=== PATIENT | male | born 1960 | race Caucasian/White ===

== ENCOUNTER 2020-09-16 08:34 | Outpatient (REF) | payer BC, SELFPAY ==
[2020-09-16 11:18] LABS: Alanine Aminotransferase 23 U/L (0-40); Albumin Level 4.2 g/dL (3.5-5.0); Alkaline Phosphatase 54 U/L (39-117); Anion Gap 12 (12-20); Aspartate Amino Transferase 20 U/L (5-37); Bilirubin Total 0.6 mg/dL (0.0-1.0); Blood Urea Nitrogen 22 mg/dL (9-16); Calcium 8.7 mg/dL (8.4-10.2); Carbon Dioxide 26 mmol/L (22-29); Chloride 104 mmol/L (96-108); Cholesterol 184 mg/dL; Estimated Glomerular Filt Rate > 60; Glucose Fasting 90 mg/dL (60-99); HDL Cholesterol 49 mg/dL; LDL Cholesterol Calculated 117 mg/dl; Potassium 4.3 mmol/l (3.3-5.1); Sodium 138 mmol/L (135-145); Total Protein 6.7 g/dL (6.5-8.0); Triglycerides 91 mg/dL
[2020-09-16 11:19] LABS: Creatinine Urine 203.66 mg/dL; Microalbum/Creatinine Ratio Ur 6.3 ug/mg cr
[2020-09-16 13:27] LABS: TSH reflex Free T4 2.47 mIU/mL (0.32-4.0)
== END 2020-09-16 08:35 | disposition home or self-care (01) ==
LOC: HO.WFDLDS 08:34
PROVIDERS: Visit Provider Family Medicine
DX: Z00.00 Encounter for general adult medical examination without abnormal findings (principal); R03.0 Elevated blood-pressure reading, without diagnosis of hypertension
CPT/HCPCS: 80053; 80061; 82043; 84443

== ENCOUNTER 2020-11-03 | Outpatient (REF) | payer BC, SELFPAY | END 2020-11-03 00:01 | disposition home or self-care (01) | LOC: HO.WFDLNP | PROVIDERS: Visit Provider Family Medicine | DX: Z20.828 Contact with and (suspected) exposure to other viral communicable diseases (principal) | CPT/HCPCS: U0003 ==

== ENCOUNTER 2020-11-04 12:36 | Outpatient (REF) | payer BC, SELFPAY ==
[2020-11-04 13:39] LABS: Basophils Percent Auto 0.3 % (0-2); Eosinophils Absolute Auto 0.1 X10*3/uL (0.0-0.4); Eosinophils Percent Auto 0.9 % (0-4); Hematocrit 43.4 % (42-52); Hemoglobin 14.4 g/dl (14.0-18.0); Imm Gran Abs Auto 0.02 X10*3/uL (0.00-0.03); Imm Gran Pct Auto 0.2 % (0.0-0.4); Lymphocytes Absolute Auto 1.7 X10*3/uL (1.2-4.9); Lymphocytes Percent Auto 18.5 % (20-40); MANUAL DIFF FLAG NO; Mean Corpuscular HGB Conc 33.2 g/dl (31.0-36.0); Mean Corpuscular Hemoglobin 31.2 pg (27.0-33.0); Mean Corpuscular Volume 93.9 fL (80-98); Mean Platelet Volume 10.4 fL (9.4-12.4); Monocytes Absolute Auto 0.7 X10*3/uL (0.1-1.2); Monocytes Percent Auto 7.3 % (2-11); Neutrophils Absolute Auto 6.5 X10*3/uL (2.0-8.3); Neutrophils Percent Auto 72.8 % (45-73); Platelet Count 269 X10*3/uL (160-400); Red Blood Count 4.62 X10*6/uL (4.60-5.80); Red Cell Distribution Width 12.7 % (11.0-16.0)
[2020-11-04 14:28] LABS: Erythrocyte Sedimentation Rate 2 MM/HR (0-15)
[2020-11-04 14:40] LABS: Alanine Aminotransferase 52 U/L (0-40); Albumin Level 4.2 g/dL (3.5-5.0); Alkaline Phosphatase 54 U/L (39-117); Anion Gap 10 (12-20); Aspartate Amino Transferase 38 U/L (5-37); Bilirubin Total 0.4 mg/dL (0.0-1.0); Blood Urea Nitrogen 20 mg/dL (9-16); Calcium 8.7 mg/dL (8.4-10.2); Carbon Dioxide 29 mmol/L (22-29); Chloride 104 mmol/L (96-108); Estimated Glomerular Filt Rate > 60; Glucose Random 95 mg/dL (60-115); Potassium 4.4 mmol/l (3.3-5.1); Sodium 139 mmol/L (135-145); Total Protein 6.8 g/dL (6.5-8.0)
== END 2020-11-04 12:37 | disposition home or self-care (01) ==
LOC: HO.WFDLDS 12:36
PROVIDERS: Visit Provider Family Medicine
DX: R51.9 Headache, unspecified (principal)
CPT/HCPCS: 36415; 80053; 85025; 85652

== ENCOUNTER 2020-12-24 16:50 | Outpatient (REF) | payer BC, SELFPAY ==
[2020-12-24 18:19] LABS: Alanine Aminotransferase 20 U/L (0-40); Albumin Level 4.4 g/dL (3.5-5.0); Alkaline Phosphatase 62 U/L (39-117); Aspartate Amino Transferase 20 U/L (5-37); Bilirubin Direct 0.2 mg/dL (0.0-0.5); Bilirubin Total 0.6 mg/dL (0.0-1.0); Total Protein 7.2 g/dL (6.5-8.0)
== END 2020-12-24 16:51 | disposition home or self-care (01) ==
LOC: HO.LAB 16:50
PROVIDERS: PCP Family Medicine; Visit Provider Family Medicine
DX: R74.01 Elevation of levels of liver transaminase levels (principal)
CPT/HCPCS: 36415; 80076

== ENCOUNTER 2021-01-07 17:10 | Outpatient (REF) | payer BC, SELFPAY ==
--- NOTE | ~2021-01-07 | US_ITS ---
EXAMINATION: US ABDOMEN, LIMITED CLINICAL INFORMATION: Internal hernia status post repair. Worsening pain. Evaluate for incarcerated bowel. COMPARISON: None TECHNIQUE: Dynamic, real-time grayscale and color Doppler sonographic evaluation of the right groin/suprapubic region was performed. FINDINGS: There is a defect in the ventral abdominal wall fascia measuring 2.4 x 1.3 cm. Through this defect is a shadowing structure of unclear etiology. No change with Valsalva. US/US pelvic limited IMPRESSION: There is a hernia in the right inguinal/superior region which does not change with Valsalva. There is shadowing present which could indicate hollow viscus, or represent surgical material. Recommend CT with contrast for further evaluation.
== END 2021-01-07 17:11 | disposition home or self-care (01) ==
LOC: HO.US 17:10
PROVIDERS: PCP Family Medicine; Visit Provider Family Medicine
DX: K40.90 Unilateral inguinal hernia, without obstruction or gangrene, not specified as recurrent (principal)
CPT/HCPCS: 76857

== ENCOUNTER 2021-01-23 08:03 | Outpatient (REF) | payer BC, SELFPAY ==
[2021-01-23 09:49] LABS: Hematocrit 45.2 % (42-52); Mean Corpuscular HGB Conc 33.2 g/dl (31.0-36.0); Mean Corpuscular Hemoglobin 30.9 pg (27.0-33.0); Mean Platelet Volume 10.5 fL (9.4-12.4); Platelet Count 251 X10*3/uL (160-400); Red Blood Count 4.86 X10*6/uL (4.60-5.80); Red Cell Distribution Width 12.7 % (11.0-16.0); White Blood Count 7.2 X10*3/uL (4.8-10.8)
[2021-01-23 10:22] LABS: Alanine Aminotransferase 14 U/L (0-40); Albumin Level 4.2 g/dL (3.5-5.0); Alkaline Phosphatase 59 U/L (39-117); Anion Gap 11 (12-20); Aspartate Amino Transferase 18 U/L (5-37); Bilirubin Direct 0.3 mg/dL (0.0-0.5); Bilirubin Total 0.7 mg/dL (0.0-1.0); Blood Urea Nitrogen 10 mg/dL (9-16); Calcium 8.9 mg/dL (8.4-10.2); Carbon Dioxide 29 mmol/L (22-29); Chloride 102 mmol/L (96-108); Estimated Glomerular Filt Rate > 60; Glucose Random 96 mg/dL (60-115); Potassium 4.6 mmol/L (3.3-5.1); Sodium 137 mmol/L (135-145); Total Protein 6.8 g/dL (6.5-8.0)
== END 2021-01-23 08:04 | disposition home or self-care (01) ==
LOC: HO.LAB 08:03
PROVIDERS: PCP Family Medicine; Visit Provider Internal Medicine
DX: R11.0 Nausea (principal); Z20.822 Contact with and (suspected) exposure to COVID-19
CPT/HCPCS: 36415; 80048; 80076; 85027; U0003; U0005

== ENCOUNTER 2021-01-25 13:10 | Outpatient (REF) | payer BC, SELFPAY ==
--- NOTE | ~2021-01-25 | CT_ITS ---
EXAMINATION: CT ABDOMEN AND PELVIS WITH CONTRAST CLINICAL INFORMATION: Unilateral inguinal hernia, without obstruction. COMPARISON: None TECHNIQUE: Multidetector volumetric images were obtained from the superior aspect of the liver through the pubic symphysis following administration 85 mL of Omnipaque 350 intravenous contrast. Sagittal and coronal reformatted images were obtained on the technologist's workstation. Oral contrast: No. This CT examination was performed using dose optimization techniques as appropriate, variously including the following: *Automated exposure control *Adjustment of mA and/or kV according to patient size (this includes techniques or standardized protocols for targeted exams where dose is matched to indication/reason for exam; i.e. extremities or head) *Use of iterative reconstruction technique DLP: 331 mGy-cm FINDINGS: LUNG BASES: The heart size is normal. There is minimal atelectatic change right lung base. There is punctate calcification along the right and coarse calcification along the left hemidiaphragm. LIVER, GALLBLADDER, AND BILIARY TREE: The liver is normal in size, shape, and attenuation. No focal hepatic lesion or biliary ductal dilatation is present. The gallbladder is unremarkable with no evidence of radiopaque gallstones, gallbladder wall thickening, or obvious pericholecystic inflammatory changes. PANCREAS: Unremarkable. SPLEEN: Unremarkable. ADRENAL GLANDS: Unremarkable. KIDNEYS AND URETERS: The kidneys are normal in size, shape, and attenuation. No hydronephrosis, hydroureter, or calculi seen. No perinephric stranding. There is a 5.2 cm cyst midpole right kidney. There is an exophytic solid 1.9 x 1.9 cm lesion midpole lateral cortex left kidney, axial image 30/3. There are two small 1.6 cm cysts in lower pole left kidney. BLADDER: Unremarkable. GASTROINTESTINAL TRACT: There is scattered stool and diverticula seen throughout the colon without any significant distention. The small bowel loops are opacified with oral contrast and appear unremarkable. The IC junction is normal. Appendix is not visualized with certainty. The stomach is distended with recently ingested oral food and oral contrast. ABDOMINAL WALL: No significant hernia is appreciated. LYMPH NODES: Normal. VASCULAR: Unremarkable. PELVIC VISCERA: The prostate gland is normal size. There is a prominent right inguinal canal containing fat and fat stranding likely from focal inflammatory process. There is a bilobed soft tissue density in the right inguinal canal measuring 2.8 cm wide, 1.8 cm in AP and 4.83 cm in length. The left inguinal canal is unremarkable. OSSEOUS STRUCTURES: No lytic or sclerotic process seen. There are degenerative disc changes T9 through L1-L2 disc levels. Minimal loss of T12 vertebral height is noted likely chronic. There is bilateral L3-L4, L4-L5 and L5-S1 facet joint arthropathy. CT/CT abdomen pelvis w con IMPRESSION: Bilateral renal cysts. There is an exophytic solid mass midpole left kidney. Soft tissue density in the right inguinal region measuring 4.3 cm in length likely fat stranding.
== END 2021-01-25 13:11 | disposition home or self-care (01) ==
LOC: HO.CT 13:10
PROVIDERS: PCP Family Medicine; Visit Provider Family Medicine
DX: K40.90 Unilateral inguinal hernia, without obstruction or gangrene, not specified as recurrent (principal)
CPT/HCPCS: 74177

== ENCOUNTER 2022-08-30 16:49 | Outpatient (REF) | payer BC, SELFPAY ==
[2022-08-30 17:05] LABS: MANUAL DIFF FLAG NO
[2022-08-30 17:28] LABS: Basophils Percent Auto 0.4 % (0-2); Eosinophils Absolute Auto 0.1 X10*3/uL (0.0-0.4); Eosinophils Percent Auto 1.2 % (0-4); Hematocrit 43.5 % (42.0-52.0); Hemoglobin 14.6 g/dl (14.0-18.0); Imm Gran Abs Auto 0.02 X10*3/uL (0.00-0.03); Imm Gran Pct Auto 0.3 % (0.0-0.4); Lymphocytes Percent Auto 26.1 % (20-40); Mean Corpuscular HGB Conc 33.6 g/dl (31.0-36.0); Mean Corpuscular Hemoglobin 30.5 pg (27.0-33.0); Mean Corpuscular Volume 90.8 fL (80.0-98.0); Mean Platelet Volume 10.5 fL (9.4-12.4); Monocytes Absolute Auto 0.8 X10*3/uL (0.1-1.2); Monocytes Percent Auto 10.1 % (2-11); Neutrophils Absolute Auto 4.7 x10*3/uL (2.0-8.3); Neutrophils Percent Auto 61.9 % (45-73); Platelet Count 251 X10*3/uL (160-400); Red Blood Count 4.79 X10*6/uL (4.60-5.80); Red Cell Distribution Width 12.9 % (11.0-16.0); White Blood Count 7.5 X10*3/uL (4.8-10.8)
[2022-08-30 17:49] LABS: Alanine Aminotransferase 18 U/L (0-40); Albumin Level 4.3 g/dL (3.5-5.0); Alkaline Phosphatase 50 U/L (39-117); Anion Gap 13 (12-20); Aspartate Amino Transferase 21 U/L (5-37); Bilirubin Total 0.2 mg/dL (0.0-1.0); Blood Urea Nitrogen 11 mg/dL (9-16); Calcium 9.3 mg/dL (8.4-10.2); Carbon Dioxide 26 mmol/L (22-29); Chloride 106 mmol/L (96-108); Cholesterol 184 mg/dL; Estimated Glomerular Filt Rate > 60; Glucose Fasting 94 mg/dL (60-99); HDL Cholesterol 49 mg/dL; LDL Cholesterol Calculated 122 mg/dl; Potassium 4.6 mmol/L (3.3-5.1); Sodium 140 mmol/L (135-145); Triglycerides 68 mg/dL
[2022-08-30 18:02] LABS: Appearance Urine Clear; Color Urine Yellow; Glucose Urine UA Negative (Negative); Leukocyte Esterase Urine Negative (Negative); Nitrite Urine Negative (Negative); PH 6.5 (5.0-9.0); Urine Blood Negative (Negative); Urine Ketones Negative (Negative); Urine Protein Negative (Neg-Trace)
[2022-08-30 18:10] LABS: Prostate Specific Antigen Scr 1.08 ng/mL (<0.05-4.0); TSH reflex Free T4 4.42 uIU/mL (0.32-4.0)
[2022-08-30 18:15] LABS: Creatinine Urine 119.14 mg/dL; Microalbum/Creatinine Ratio Ur 4.1 ug/mg cr
[2022-08-30 18:41] LABS: Free T4 (Free Thyroxine) 0.76 ng/dL (0.71-1.85)
== END 2022-08-30 16:50 | disposition home or self-care (01) ==
LOC: HO.LAB 16:49
PROVIDERS: PCP Family Medicine; Visit Provider Family Medicine
DX: Z00.00 Encounter for general adult medical examination without abnormal findings (principal); Z12.5 Encounter for screening for malignant neoplasm of prostate; I10 Essential (primary) hypertension
CPT/HCPCS: 36415; 80053; 80061; 81003; 82043; 84153; 84439; 84443; 85025

== ENCOUNTER → 2023-01-04 15:49 | Outpatient (BNVA) | payer BC, SELFPAY | PROVIDERS: PCP Family Medicine; Visit Provider Nurse Practitioner Family | DX: Z13.89 Encounter for screening for other disorder (principal) ==

== ENCOUNTER 2023-09-05 15:56 | Outpatient (AMB) | payer BC, SELFPAY ==
--- NOTE | 2023-09-05 15:58 | A.OFFPC_ITS ---
Vital Signs 09/05/23 15:59 Height 5 ft 5 in Weight 156 lb BMI 26.0 BP 112/60 Blood Pressure Location Lt brachial Position Sitting Respiration 13 Pulse 60 Pulse Source Pulse Oximeter Temp 98.9 F Temp Source Oral Pulse Oximetry (%) 97 Oxygen Delivery Method Room Air Intake Visit Reasons: CPE Intake Note: Patient is here for his yearly physical and has a concern for his R ankle pain, no recall of injury, stepped out of truck and pain started, 2 months ago. Patient reports he has tried OTC pain relievers and they dont help, elevating the R ankle, ice and heat alternations and the pain is still there. Patient reports the pain becomes so bad at times he will start limping. Group Sales Coordinator Required: No Accompanied by: Self / Same As Patient Allergies oxycodone [OXYCODONE] Allergy (Intermediate, Verified 09/05/23 16:08) N/V, sometimes feels sick Tobacco use date assessed: 09/05/23 Fall risk assessment: No Falls in past year Last assessed Fall Risk: 09/05/23 Dental Screening Dental Screen Date: 09/05/23 Did you have a dental visit in the last 12 months?: Yes Did you have a dental problem in the last 6 months where you did not have access to dental care?: No Was dental information given to patient?: Patient has dentist HPI CPE HPI Details 63 y/o male presents for a CPE with f/u labs and health maintenance. No recent labs to review. Had elevated TSH from last year. Pt has complaints of R ankle pain. He does not recall any specific moments of injury. Pt reports ongoing tingling of his hands at night. [facility] Medical History Right inguinal pain Arthritis Hypertension Hyperlipidemia LDL goal <130 Hyperlipidemia Surgical History History of colonoscopy History of inguinal hernia repair Family History Father Unknown family medical history Mother No problems noted. Social History (Updated 09/05/23 @ 16:12 by Carri Rogers CMA) Household Members: None Housing: House Alcohol intake: never Patient Tobacco Use Status: Former Tobacco user Tobacco use type: Cigarette Cigarette Packs Per Day: 0.5 Cigarettes Per Day: 10 Years Smoked: 28 e-Cigarette/Vaping Use: Never Used Second Hand Smoke Exposure: No service: No Current occupational status: employed Current occupation: [employer] Current occupational exposures/hazards: No Sexual orientation: Unable to collect Gender identity: Unable to collect Cognitive needs: No Hearing needs: Yes (patient reports hes always had problems with hearing and hearing aids.) Vision needs: No Questionnaire PHQ-9 Over the last 2 weeks, how often have you been bothered by any of the following problems? 1. Little interest or pleasure in doing things: not at all 2. Feeling down, depressed, or hopeless: not at all 3. Trouble falling or staying asleep, or sleeping too much: not at all 4. Feeling tired or having little energy: not at all 5. Poor appetite or overeating: not at all 6. Feeling bad about yourself - or that you are a failure or have let yourself or your family down: not at all 7. Trouble concentrating on things, such as reading the newspaper or watching television: not at all 8. Moving or speaking so slowly that other people could have noticed. Or the opposite - being so fidgety or restless that you have been moving around a lot more than usual: not at all 9. Thoughts that you would be better off or of hurting yourself in some way: not at all Total score: 0 Depression Screening Interpretation: Negative Depression Screening Done: Yes 23842 - PHQ-9 Billing: Yes Source: Developed by Drs. Higinio Morales, Maxine Suazo, Amado Steel and colleagues, with an educational kellie from [employer]. Thrive Questionnaire Date Thrive assessed: 09/05/23 I am a: Patient What is your living situation today?: I have a steady place to live Within the past 12 months, did the food you bought not last and you didn't have the money to get more?: Never true Within the past 12 months, did you worry whether your food would run out before you got money to buy more?: Never true Do you have trouble paying for medicines?: No Do you have trouble getting transportation to medical appointments?: No Do you have trouble paying your heating and electricity bill?: No Do you have trouble taking care of your child, family member or friend?: No Do you have trouble with day-to-day activities such as bathing, preparing meals, shopping, managing finances, etc.?: No Are you currently unemployed and looking for a job?: No Are you interested in more education?: No Please select the resources that you would like help with: None Currently or been in a relationship where the following occur: no concerns reported AUDIT C Alcohol Use Questionnaire (AUDIT-C) 1. How often do you have a drink containing alcohol?: Never 3. How often do you have six or more drinks on one occasion?: Never Total Score: 0 ALCIRA-7 AMB Questionnaire ALCIRA-7 Date ALCIRA - 7 assessed: 09/05/23 Feeling nervous, anxious, or on edge: 0 = Not at all Not being able to stop or control worryin = Not at all Worrying too much about different things: 0 = Not at all Trouble relaxin = Not at all Being so restless that it is hard to sit still: 0 = Not at all Becoming easily annoyed or irritable: 0 = Not at all Feeling afraid as if something awful might happen: 0 = Not at all Total ALCIRA-7 score (0-4 normal; 5-9 mild; 10-14 moderate; 15-21 severe): 0 Source: Developed by Drs. Higinio Morales, Maxine Suazo, Amado Steel and colleagues, with an educational kellie from [employer]. ALCIRA-7 Assessment Billing ALCIRA-7 Assessment Tool: ALCIRA-7 Assessment 96049 Review of Systems Const Denies chills, Denies fatigue, Denies fever(s), Denies headache(s) and Denies weakness Eyes Denies change in vision ENT Denies dizziness, Denies headache(s), Denies hearing loss, Denies nasal congestion, Denies sinus pain, Denies sinus pressure and Denies sore throat Card Denies chest pain, Denies lightheadedness, Denies dyspnea and Denies other (palpitations) Resp Denies cough, Denies dyspnea and Denies wheezing GI Denies abdominal pain, Denies melena, Denies hematochezia, Denies change in bowel habits, Denies dyspepsia and Denies nausea Denies hematuria and Denies dysuria Musc Denies abnormal gait, Denies myalgias, Denies arthralgias, Denies numbness and Denies tingling Skin/Breast Denies rash, Denies unusual bruising and Denies wounds Neuro Denies abnormal gait, Denies dizziness, Denies headache(s), Denies memory loss, Denies numbness, Denies Sensory deficit (Neuro), Denies tingling and Denies weakness Psych Denies anxiety, Denies depression and Denies memory loss Endo Denies cold intolerance, Denies fatigue, Denies heat intolerance, Denies polydipsia and Denies polyuria Jason/Lymph Denies easy bleeding and Denies easy bruising Aller/Immun Denies wheezing Physical exam (Primary Care) Vital Signs: Last Vital Signs Temp 98.9 F 09/05/23 15:59 Pulse 60 09/05/23 15:59 Resp 13 09/05/23 15:59 BP 112/60 09/05/23 15:59 Pulse Ox 97 09/05/23 15:59 Oxygen Delivery Method Room Air 09/05/23 15:59 BMI result Body Mass Index 26.0 Tobacco/Smoking Status: Tobacco use Status Tobacco use date assessed 09/05/23 09/05/23 16:13 Patient Tobacco Use Status Former Tobacco user 09/05/23 16:13 Tobacco use type Cigarette 09/05/23 16:12 e-Cigarette/Vaping Use Never Used 09/05/23 16:13 PHQ-9: PHQ-9 Score PHQ-9: Total score 0 09/05/23 16:27 Depression Screening Interpretation: Negative Thrive Assessment: Date of Thrive Assessment Date Thrive assessed 09/05/23 09/05/23 16:14 Currently or been in a relationship where the following occur: no concerns reported Const General: no acute distress, well developed, alert and awake Nutritional Appearance: well nourished Orientation/consciousness: patient oriented x3 HENMT Head: Yes normocephalic and Yes atraumatic Ears: hearing grossly normal bilaterally and TM's normal bilaterally General nose exam: Normal external nose present and Normal nares present Mouth: Normal oral and palatal mucosa present and moist mucous membranes Teeth and gingiva: dentition normal Throat: Yes posterior oropharynx normal Eyes General: appearance normal, both eyes and all related structures Pupils: Equal, round and reactive pupils present and Pupil accommodation reflex normal EOM: EOMs intact bilaterally Neck Neck: Yes normal visual inspection, Yes no lymphadenopathy and Yes trachea midline Thyroid: Thyroid normal Carotids: no bruits Lymphatic: no lymphadenopathy noted Chest Chest palpation & inspection: normal inspection of the chest Resp Effort & Inspection: normal respiratory effort Auscultation: clear to auscultation bilaterally Cardio Rate: regular rate Rhythm: regular rhythm Heart sounds: S1 normal heart sound present, S2 normal heart sound present, no gallops, no murmurs and no rubs Bruits: no abdominal aortic bruits and no carotid bruits GI Palpation (GI): No Abdominal aortic bruit present, Soft to palpation, nontender, No hepatosplenomegaly present and No Rebound tenderness present Auscultation: normal bowel sounds General: Yes no CVA tenderness Back/Spine/Pelvis Back: no CVA tenderness Cervical Spine: cervical ROM normal and No Cervical spine tenderness Thoracic/Lumbar Spine: thoraco-lumbar ROM normal, No pain with thoraco-lumbar ROM, No thoracic spinal tenderness and No lumbar spinal tenderness Skin Lesions: no lesions Rashes: no rashes Trauma: no lacerations or abrasions Wounds: no wounds Nails: normal Neuro General: patient oriented x3 Cranial nerves: Yes Equal, round and reactive pupils present Cognition (Neuro): normal cognition Gait exam (Neuro): Normal gait present Motor exam (neuro): 5/5 motor strength present throughout Sensory Exam: No Sensory deficit (Neuro) Deep tendon reflexes (DTR's): Right patellar reflex intensity grade: 2+ and Left patellar reflex intensity grade: 2+ Extrem General: Yes normal to inspection and No edema Psych Appearance: grossly normal Affect: normal affect Attitude: cooperative Thought process: Normal thought process present Assessment and Plan Assessment & Plan (1) Adult general medical exam: Code(s): Z00.00 - Encounter for general adult medical examination without abnormal findings Plan: 63-year-old?male?presents?for?complete?physical?exam Encouraged?healthy?diet?with?active?lifestyle?and?plenty?of?exercise (2) Screening for prostate cancer: Code(s): Z12.5 - Encounter for screening for malignant neoplasm of prostate Plan: PSA?was?normal?at?last?check.??Rechecking?PSA (3) Screening for colon cancer: Code(s): Z12.11 - Encounter for screening for malignant neoplasm of colon Plan: Followed?by?[facility]?gastroenterology. Follow-up?with?[facility]?GI?as?recommended (4) Right ankle pain: Code(s): M25.571 - Pain in right ankle and joints of right foot Plan: Likely?right?ankle?sprain Check?x-ray Ordered?physical?therapy We?can?follow-up?on?this?at?his?next?visit (5) Numbness and tingling of right hand: Code(s): R20.0 - Anesthesia of skin; R20.2 - Paresthesia of skin Plan: Unclear?cause.??No?carpal?tunnel?according?to?Neurology Possible?cervical?radiculitis?and?advised?he?adjust?pillows. He?denies?any?symptoms?of?sleep?apnea He?can?let?me?know?if?this?worsens?or?persists (6) Hearing loss, right: Code(s): H91.91 - Unspecified hearing loss, right ear Plan: Has?hearing?aids He?will?let?me?know?if?symptoms?are?worsening (7) Elevated TSH: Code(s): R79.89 - Other specified abnormal findings of blood chemistry Plan: Elevated?TSH?at?last?check.??We?are?repeating?this Orders: Orders XR ankle RT min 3V Today M25.571 - Pain in right ankle and joints of right foot Lipid Panel Today Z00.00 - Encounter for general adult medical examination without abnormal findings Free T4 (Free Thyroxine) Today E03.9 - Hypothyroidism, unspecified Triiodothyronine T3 Total Today E03.9 - Hypothyroidism, unspecified Thyroid Stimulating Hormone Today E03.9 - Hypothyroidism, unspecified PT Evaluation and Treatment Today M25.571 - Pain in right ankle and joints of right foot Comprehensive [place]. Panel Fast Today Z00.00 - Encounter for general adult medical examination without abnormal findings Microalbumin, Random (w Creat) Today I10 - Essential (primary) hypertension Prostate Specific Antigen Scr Today Z12.5 - Encounter for screening for malignant neoplasm of prostate UA and rflx microscopic Today Z00.00 - Encounter for general adult medical examination without abnormal findings Coding Level of Care Code Est Pt Level 3 (49653) Est Pt Prev Care >65y(36503) Diagnoses Adult general medical exam Z00.00 Screening for prostate cancer Z12.5 Screening for colon cancer Z12.11 Right ankle pain M25.571 Numbness and tingling of right hand R20.0; R20.2 Hearing loss, right H91.91 Elevated TSH R79.89 Additional Codes ALCIRA-7 Assessment Billing - ALCIRA-7 Assessment Tool: ALCIRA-7 Assessment 21474 ([id number])
[2023-09-05 15:59] VITALS: BP 112/60; PULSE 60; RESP 13; TEMP 37.2; O2SAT 97; BMI 26.0
== END 2023-09-05 16:49 | disposition home or self-care (01) ==
PROVIDERS: PCP Family Medicine; Visit Provider Family Medicine
DX: Z00.00 Encounter for general adult medical examination without abnormal findings (principal); M25.571 Pain in right ankle and joints of right foot; R20.0 Anesthesia of skin; R20.2 Paresthesia of skin; H91.91 Unspecified hearing loss, right ear; R79.89 Other specified abnormal findings of blood chemistry
CPT/HCPCS: 99213; 99397

== ENCOUNTER 2023-11-01 15:20 | Outpatient (AMB) | payer BC, SELFPAY ==
--- NOTE | 2023-11-01 15:38 | A.OFFPC_ITS ---
Vital Signs 11/01/23 15:40 Height 5 ft 5 in Weight 156 lb BMI 26.0 BP 118/62 Blood Pressure Location Lt brachial Position Sitting Pulse 70 Pulse Source Pulse Oximeter Pulse Oximetry (%) 96 Oxygen Delivery Method Room Air Intake Visit Reasons: f/u elevated TSH and labs Intake Note: Patient is here with complaint of right ankle pain, has not get his labs done. Allergies oxycodone [OXYCODONE] Allergy (Intermediate, Verified 11/01/23 15:43) N/V, sometimes feels sick Tobacco use date assessed: 11/01/23 Fall risk assessment: No Falls in past year Last assessed Fall Risk: 11/01/23 HPI f/u elevated TSH and labs HPI Details 63 y/o male presents to f/u elevated TSH and labs. No recent labs to review but does have complaints of R ankle pain. X-ray negative except for mild swelling. [facility] Medical History Right inguinal pain Arthritis Hypertension Hyperlipidemia LDL goal <130 Hyperlipidemia Surgical History History of colonoscopy History of inguinal hernia repair Family History Father Unknown family medical history Mother No problems noted. Social History Household Members: None Housing: House Alcohol intake: never Patient Tobacco Use Status: Former Tobacco user Tobacco use type: Cigarette Cigarette Packs Per Day: 0.5 Cigarettes Per Day: 10 Years Smoked: 28 e-Cigarette/Vaping Use: Never Used Second Hand Smoke Exposure: No service: No Current occupational status: employed Current occupation: [employer] Current occupational exposures/hazards: No Sexual orientation: Unable to collect Gender identity: Unable to collect Cognitive needs: No Hearing needs: Yes (patient reports hes always had problems with hearing and hearing aids.) Vision needs: No Questionnaire Thrive Questionnaire Date Thrive assessed: 09/05/23 ALCIRA-7 AMB Questionnaire ALCIRA-7 Date ALCIRA - 7 assessed: 09/05/23 Source: Developed by Drs. Higinio Morales, Maxine Suazo, Amado Steel and colleagues, with an educational kellie from [employer]. Review of Systems Const Denies chills, Denies fatigue, Denies fever(s), Denies headache(s) and Denies weakness ENT Denies dizziness and Denies headache(s) Card Denies dyspnea Resp Denies cough, Denies dyspnea, Denies wheezing and Denies other (shortness of breath) Musc Details: R ankle pain Denies numbness and Denies tingling Neuro Denies dizziness, Denies headache(s), Denies numbness, Denies tingling and Denies weakness Psych Denies anxiety and Denies depression Endo Denies fatigue Aller/Immun Denies wheezing Physical exam (Primary Care) Vital Signs: Last Vital Signs Pulse 70 11/01/23 15:40 BP 118/62 11/01/23 15:40 Pulse Ox 96 11/01/23 15:40 Oxygen Delivery Method Room Air 11/01/23 15:40 BMI result Body Mass Index 26.0 Tobacco/Smoking Status: Tobacco use Status Tobacco use date assessed 11/01/23 11/01/23 15:48 Patient Tobacco Use Status Former Tobacco user 11/01/23 15:41 Tobacco use type Cigarette 11/01/23 15:41 e-Cigarette/Vaping Use Never Used 11/01/23 15:41 Thrive Assessment: Date of Thrive Assessment Date Thrive assessed 09/05/23 11/01/23 15:41 Const General: well developed; No acute distress Nutritional Appearance: well nourished Orientation/consciousness: patient oriented x3 [facility] Head: Yes normocephalic and Yes atraumatic Eyes General: appearance normal, both eyes and all related structures Pupils: Equal, round and reactive pupils present EOM: EOMs intact bilaterally Resp Effort & Inspection: normal respiratory effort Neuro General: patient oriented x3 and gait normal Cranial nerves: Yes Equal, round and reactive pupils present Psych Affect: normal affect Assessment and Plan Assessment & Plan (1) Right ankle pain: Code(s): M25.571 - Pain in right ankle and joints of right foot Plan: Right?ankle?and?foot?pain?and?swelling?after?stepping?down?[address]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 Likely?contusion?of?arch?and?mild?sprain?of?ankle Elevate?foot Ice/heat?and?he?can?continue?using?icy?hot Arch?support?in?boot?while?working Naproxen Call?or?return?to?office?if?not?improving (2) Elevated TSH: Code(s): R79.89 - Other specified abnormal findings of blood chemistry Plan: Patient?has?not?gotten?his?labs?drawn?yet?but?will?do?so?prior?to?next?visit?[facility]?we?can?review?by?telemedicine. Coding Level of Care Code Est Pt Level 3 (27782) Diagnoses Right ankle pain M25.571 Elevated TSH R79.89
[2023-11-01 15:40] VITALS: BP 118/62; PULSE 70; O2SAT 96; BMI 26.0
== END 2023-11-01 16:26 | disposition home or self-care (01) ==
PROVIDERS: PCP Family Medicine; Visit Provider Family Medicine
DX: M25.571 Pain in right ankle and joints of right foot (principal); R79.89 Other specified abnormal findings of blood chemistry
CPT/HCPCS: 99213

== ENCOUNTER 2023-12-19 14:13 | Outpatient (REF) | payer BC, SELFPAY ==
--- NOTE | ~2023-12-19 | XR_ITS ---
EXAMINATION: XR ANKLE, RIGHT CLINICAL INFORMATION: Pain in the right ankle and joints of the right foot. COMPARISON: None available. TECHNIQUE: AP, lateral, and mortise views of the right ankle. FINDINGS: Small marginal osteophytes at the right talocrural joint. Joint spaces are well-preserved. Mild soft tissue swelling. Calcific atherosclerosis is noted. No fracture or malalignment. 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 No acute osseous findings.
[2023-12-19 14:45] LABS: Appearance Urine Clear; Color Urine Yellow; Glucose Urine UA Negative (Negative); Leukocyte Esterase Urine Negative (Negative); Nitrite Urine Negative (Negative); PH 6.5 (5.0-9.0); Specific Gravity - Urine 1.015 (1.005-1.025); Urine Blood Negative (Negative); Urine Ketones Negative (Negative); Urine Protein Negative (Neg-Trace)
[2023-12-19 15:10] LABS: Creatinine Urine 48.88 mg/dL; Microalbumin Urine < 5.0 mg/L
[2023-12-19 15:18] LABS: Alanine Aminotransferase 16 U/L (0-40); Albumin Level 4.3 g/dL (3.5-5.0); Alkaline Phosphatase 49 U/L (39-117); Anion Gap 12 (12-20); Aspartate Amino Transferase 20 U/L (5-37); Bilirubin Total 0.5 mg/dL (0.0-1.0); Blood Urea Nitrogen 19 mg/dL (9-16); Calcium 9.3 mg/dL (8.4-10.2); Carbon Dioxide 29 mmol/L (22-29); Chloride 104 mmol/L (96-108); Cholesterol 190 mg/dL (<200); Estimated Glomerular Filt Rate > 60; Glucose Fasting 91 mg/dL (60-99); HDL Cholesterol 56 mg/dL (>40); LDL Cholesterol Calculated 124 mg/dL (<100); Potassium 4.7 mmol/L (3.3-5.1); Sodium 140 mmol/L (135-145); Total Protein 7.3 g/dL (6.5-8.0); Triglycerides 53 mg/dL (<150)
[2023-12-19 15:33] LABS: Free T4 (Free Thyroxine) 0.77 ng/dL (0.71-1.85); Prostate Specific Antigen Scr 1.26 ng/mL (<0.05-4.0); Thyroid Stimulating Hormone 3.29 uIU/mL (0.32-4.0)
[2023-12-20 03:48] LABS: Triiodothyronine T3 Total 126 ng/dL (76-181)
== END 2023-12-19 14:14 | disposition home or self-care (01) ==
LOC: HO.XRAY 14:13
PROVIDERS: PCP Family Medicine; Visit Provider Family Medicine
DX: Z00.00 Encounter for general adult medical examination without abnormal findings (principal); Z12.5 Encounter for screening for malignant neoplasm of prostate; M25.571 Pain in right ankle and joints of right foot; I10 Essential (primary) hypertension; E03.9 Hypothyroidism, unspecified
CPT/HCPCS: 36415; 73610; 80053; 80061; 81003; 82043; 82570; 84153; 84439; 84443; 84480

== ENCOUNTER 2024-02-26 16:59 | Outpatient (AMB) | payer BC, SELFPAY ==
--- NOTE | 2024-02-26 16:46 | A.OFFPC_ITS ---
Intake Visit Reasons: f/u r foot swelling and labs Intake Note: Patient is following up on x-ray, labs today. Allergies oxycodone [OXYCODONE] Allergy (Intermediate, Verified 02/26/24 16:48) N/V, sometimes feels sick Tobacco use date assessed: 02/26/24 Fall risk assessment: No Falls in past year Last assessed Fall Risk: 02/26/24 Dental Screening Dental Screen Date: 02/26/24 Did you have a dental visit in the last 12 months?: Yes Did you have a dental problem in the last 6 months where you did not have access to dental care?: No Was dental information given to patient?: Patient has dentist HPI f/u r foot swelling and labs HPI Details 63 y/o male presents to f/u R foot swell ing and labs via telemedicine. Labs were drawn 12/19/23. Reviewed labs with pt. Triglcyerides 53. TC 190. LDL 124. HDL 56. TSH improved from 4.42 to 3.29 uIU/mL. Ankle x-ray 12/19/23 showed minimal osteoarthritis at the R talocrural joint. No acute osseous findings. [facility] Medical History Right inguinal pain Arthritis Hypertension Hyperlipidemia LDL goal <130 Hyperlipidemia Surgical History History of colonoscopy History of inguinal hernia repair Family History Father Unknown family medical history Mother No problems noted. Social History Household Members: None Housing: House Alcohol intake: never Patient Tobacco Use Status: Former Tobacco user Tobacco use type: Cigarette Cigarette Packs Per Day: 0.5 Cigarettes Per Day: 10 Years Smoked: 28 e-Cigarette/Vaping Use: Never Used Second Hand Smoke Exposure: No service: No Current occupational status: employed Current occupation: [employer] Current occupational exposures/hazards: No Sexual orientation: Unable to collect Gender identity: Unable to collect Cognitive needs: No Hearing needs: Yes (patient reports hes always had problems with hearing and hearing aids.) Vision needs: No Questionnaire Thrive Questionnaire Date Thrive assessed: 09/05/23 ALCIRA-7 AMB Questionnaire ALCIRA-7 Date ALCIRA - 7 assessed: 09/05/23 Source: Developed by Drs. Higinio Morales, Maxine Suazo, Amado Steel and colleagues, with an educational kellie from [employer]. Review of Systems Const Denies chills, Denies fatigue, Denies fever(s), Denies headache(s) and Denies weakness ENT Denies dizziness and Denies headache(s) Card Denies dyspnea Resp Denies cough, Denies dyspnea, Denies wheezing and Denies other (shortness of breath) Musc Denies numbness and Denies tingling Neuro Denies dizziness, Denies headache(s), Denies numbness, Denies tingling and Denies weakness Psych Denies anxiety and Denies depression Endo Denies fatigue Aller/Immun Denies wheezing Physical exam (Primary Care) Tobacco/Smoking Status: Tobacco use Status Tobacco use date assessed 02/26/24 02/26/24 16:49 Patient Tobacco Use Status Former Tobacco user 02/26/24 16:49 Tobacco use type Cigarette 02/26/24 16:49 e-Cigarette/Vaping Use Never Used 02/26/24 16:49 Thrive Assessment: Date of Thrive Assessment Date Thrive assessed 09/05/23 02/26/24 16:49 Telehealth Telehealth Telehealth Platform: Telephone Location of provider rendering services: practice address Location of patient: address on file Patient Identification confirmed using: Name, : Yes Telehealth method: voice only Patient verbally consented to treatment: Yes Patient verbally consented to billing insurance company: Yes Patient informed of any privacy concerns related to visit: Yes Minutes spent on Phone/Video with Pt.: 8 Assessment and Plan Assessment & Plan (1) Swelling of right foot: Code(s): M79.89 - Other specified soft tissue disorders Plan: Osteoarthritis?of?the?right?foot He?gets?some?improvement?when?he?takes?naproxen. Offered?to?refer?him?to?Ortho?to?consider?steroid?injections?but?he?wants?to?con tinue?using?naproxen?and?I?advised?he?elevate?his?foot?and? use?cold?packs?when?he?gets?home?from?work. He?will?let?me?know?if?this?worsens?and?at?that?point?we?would?make?a?referral. (2) Elevated TSH: Code(s): R79.89 - Other specified abnormal findings of blood chemistry Plan: This?has?resolved Plan Reviewed?patient's?labs?with?him?and?everything?looks?okay Coding Level of Care Code Tele Est Pt Level 2 (25272) Diagnoses Swelling of right foot M79.89 Elevated TSH R79.89
== END 2024-02-26 17:35 | disposition home or self-care (01) ==
LOC: HO.HMGFM 16:59
PROVIDERS: PCP Family Medicine; Visit Provider Family Medicine
DX: M79.89 Other specified soft tissue disorders (principal); R79.89 Other specified abnormal findings of blood chemistry
CPT/HCPCS: 99441

== ENCOUNTER 2025-07-09 15:24 | Outpatient (AMB) | payer BC, SELFPAY ==
--- NOTE | 2025-07-09 15:27 | MHC.PC.OV ---
Vital Signs 07/09/25 15:31 Height 5 ft 3 in Weight 156 lb 2 oz BMI 27.7 BP 110/64 Blood Pressure Location Rt brachial Position Sitting Respiration 14 Pulse 71 Pulse Source Pulse Oximeter Temp 98.2 F Temp Source Temporal Artery Scan Pulse Oximetry (%) 97 Oxygen Delivery Method Room Air Intake Visit Reasons: ankle issues on right foot Intake Note: Bharathi presents in the office today for issues with his right ankle. Allergies oxycodone (OXYCODONE) Allergy (Intermediate, Verified 07/09/25 15:29) N/V, sometimes feels sick Medication List - Last Reconciled 07/09/25 by Christian Lock MD enalapril maleate 10 mg PO DAILY 90 days Tobacco use date assessed: 07/09/25 Fall risk assessment: No Falls in past year Last assessed Fall Risk: 07/09/25 Dental Screening Dental Screen Date: 07/09/25 Did you have a dental visit in the last 12 months?: Yes Did you have a dental problem in the last 6 months where you did not have access to dental care?: No Was dental information given to patient?: Patient has dentist HPI ankle issues on right foot HPI Details 65 y/o male presents today with complaints of R ankle/foot pain. [facility] Medical History Right inguinal pain Arthritis Hypertension Hyperlipidemia LDL goal <130 Hyperlipidemia Surgical History History of colonoscopy History of inguinal hernia repair Family History Father Unknown family medical history Mother No problems noted. Social History (Updated 07/09/25 @ 15:31 by Sheron Ayoub MA) Household Members: None Housing: House Alcohol intake: never Patient Tobacco Use Status: Former Tobacco user Tobacco use type: Cigarette Cigarette Packs Per Day: 0.5 Cigarettes Per Day: 10 Years Smoked: 28 e-Cigarette/Vaping Use: Never Used Second Hand Smoke Exposure: No service: No Current occupational status: employed Current occupation: [employer] Current occupational exposures/hazards: No Sexual orientation: Unable to collect Gender identity: Unable to collect Cognitive needs: No Hearing needs: Yes (patient reports hes always had problems with hearing and hearing aids.) Vision needs: No Questionnaire Thrive Questionnaire Date Thrive assessed: 09/05/23 ALCIRA-7 AMB Questionnaire ALCIRA-7 Date ALCIRA - 7 assessed: 09/05/23 Source: Developed by Drs. Higinio Morales, Maxine Suazo, Amado tSeel and colleagues, with an educational kellie from [employer]. Review of Systems Const Denies chills, Denies fatigue, Denies fever(s), Denies headache(s) and Denies weakness ENT Denies dizziness and Denies headache(s) Card Denies dyspnea Resp Denies cough, Denies dyspnea, Denies wheezing and Denies other (shortness of breath) Musc Denies numbness and Denies tingling Neuro Denies dizziness, Denies headache(s), Denies numbness, Denies tingling and Denies weakness Psych Denies anxiety and Denies depression Endo Denies fatigue Aller/Immun Denies wheezing Physical exam (Primary Care) Vital Signs: Last Vital Signs Temp 98.2 F 07/09/25 15:31 Pulse 71 07/09/25 15:31 Resp 14 07/09/25 15:31 BP 110/64 07/09/25 15:31 Pulse Ox 97 07/09/25 15:31 Oxygen Delivery Method Room Air 07/09/25 15:31 BMI result Body Mass Index 27.7 Tobacco/Smoking Status: Tobacco use Status Tobacco use date assessed 07/09/25 07/09/25 15:34 Patient Tobacco Use Status Former Tobacco user 07/09/25 15:31 Tobacco use type Cigarette 07/09/25 15:31 e-Cigarette/Vaping Use Never Used 07/09/25 15:31 Thrive Assessment: Date of Thrive Assessment Date Thrive assessed 09/05/23 07/09/25 15:29 Const General: well developed; No acute distress Nutritional Appearance: well nourished Orientation/consciousness: patient oriented x3 HENMT Head: Yes normocephalic and Yes atraumatic Eyes General: appearance normal, both eyes and all related structures Pupils: Equal, round and reactive pupils present EOM: EOMs intact bilaterally Resp Effort & Inspection: normal respiratory effort Neuro General: patient oriented x3 and gait normal Cranial nerves: Yes Equal, round and reactive pupils present Psych Affect: normal affect Coding Level of Care Code Est Pt Level 4 (20022) Diagnoses Right foot pain M79.671 Essential hypertension I10 Assessment & Plan Assessment & Plan (1) Right foot pain: Code(s): M79.671 - Pain in right foot Category: Medical Plan: Longstanding and worsening right foot pain. X-ray had shown osteoarthritis. No recent x-ray - will order new x-ray and follow-up with patient Referred to Podiatry. Instep and arch appear mildly collapsed and he may benefit from supportive arch. (2) Essential hypertension: Code(s): I10 - Essential (primary) hypertension Category: Medical Plan: Blood pressure remains well controlled on enalapril. Goal is less than 140/90 Continue medication Orders: Orders Complete Blood Count Auto Diff Today Z00.00 - Encounter for general adult medical examination without abnormal findings Lipid Panel Today Z00.00 - Encounter for general adult medical examination without abnormal findings Microalbumin, Random (w Creat) Today I10 - Essential (primary) hypertension Prostate Specific Antigen Scr Today Z12.5 - Encounter for screening for malignant neoplasm of prostate TSH reflex Free T4 Today Z00.00 - Encounter for general adult medical examination without abnormal findings XR foot RT min 3V Today M79.671 - Pain in right foot Comprehensive [place]. Panel Fast Today Z00.00 - Encounter for general adult medical examination without abnormal findings UA CC w/rflx Micro + Cult Today Z00.00 - Encounter for general adult medical examination without abnormal findings Referrals Podiatry Referral M79.671 - Pain in right foot Medications: Refilled enalapril maleate 10 mg PO DAILY 90 tabs 2RF 90 days
[2025-07-09 15:31] VITALS: BP 110/64; PULSE 71; RESP 14; TEMP 36.8; O2SAT 97; BMI 27.7
== END 2025-07-09 15:48 | disposition home or self-care (01) ==
LOC: HO.HMCFM 15:24
PROVIDERS: PCP Family Medicine; Visit Provider Family Medicine
DX: M79.671 Pain in right foot (principal); I10 Essential (primary) hypertension

== ENCOUNTER 2025-07-15 10:53 | Outpatient (REF) | payer BC, SELFPAY ==
--- NOTE | ~2025-07-15 | XR_ITS ---
EXAMINATION: XR FOOT 3 OR MORE VIEWS RIGHT HISTORY: M79.671 - Pain in right foot COMPARISON: There are no prior studies available for comparison. FINDINGS: Three views of the right foot are submitted. Osseous mineralization is normal. There is no fracture or dislocation. There is moderate osteoarthritis of the 1st MTP joint with joint space and osteophyte formation. There is mild degenerative change of the talonavicular joint. The soft tissues are unremarkable. XR/XR foot RT min 3V IMPRESSION: Degenerative changes of the right foot as described. Electronically signed by: Higinio Soto MD 07/15/2025 11:26 AM EDT
[2025-07-15 11:37] LABS: MANUAL DIFF FLAG NO
[2025-07-15 11:56] LABS: Hematocrit 42.3 % (42.0-52.0); Hemoglobin 14.2 g/dl (14.0-18.0); Imm Gran Abs Auto 0.02 X10*3/uL (0.00-0.03); Imm Gran Pct Auto 0.3 % (0.0-0.4); Lymphocytes Absolute Auto 1.4 X10*3/uL (1.2-4.9); Mean Corpuscular HGB Conc 33.6 g/dl (31.0-36.0); Mean Corpuscular Hemoglobin 31.0 pg (27.0-33.0); Mean Corpuscular Volume 92.4 fL (80.0-98.0); NRBC Abs Auto 0.000 X10*3/uL (0.0-0.012); NRBC Pct Auto 0.0 /100WBC (0.0-0.2); Platelet Count 204 X10*3/uL (160-400); Red Blood Count 4.58 X10*6/uL (4.60-5.80); White Blood Count 6.9 X10*3/uL (4.8-10.8)
[2025-07-15 12:25] LABS: Appearance Urine Clear; Glucose Urine UA Negative (Negative); PH 6.0 (5.0-9.0); Specific Gravity - Urine >= 1.030 (1.005-1.025)
[2025-07-15 12:32] LABS: Alanine Aminotransferase 19 U/L (0-40); Albumin Level 4.1 g/dL (3.5-5.0); Alkaline Phosphatase 48 U/L (39-117); Anion Gap 8 (12-20); Aspartate Amino Transferase 23 U/L (5-37); Blood Urea Nitrogen 24 mg/dL (9-16); Calcium 8.8 mg/dL (8.4-10.2); Carbon Dioxide 27 mmol/L (22-29); Chloride 111 mmol/L (96-108); Cholesterol 176 mg/dL (<200); Estimated Glomerular Filt Rate > 60; HDL Cholesterol 45 mg/dL (>40); Potassium 4.2 mmol/L (3.3-5.1); Sodium 142 mmol/L (135-145); Total Protein 6.5 g/dL (6.5-8.0); Triglycerides 106 mg/dL (<150)
[2025-07-15 13:18] LABS: Microalbum/Creatinine Ratio Ur 3.3 ug/mg cr (<30)
== END 2025-07-15 10:54 | disposition home or self-care (01) ==
LOC: HO.XRAY 10:53
PROVIDERS: PCP Family Medicine; Visit Provider Family Medicine
DX: Z00.00 Encounter for general adult medical examination without abnormal findings (principal); Z12.5 Encounter for screening for malignant neoplasm of prostate; I10 Essential (primary) hypertension; M79.671 Pain in right foot
CPT/HCPCS: 36415; 73630; 80053; 80061; 81003; 82043; 82570; 84153; 84443; 85025

== ENCOUNTER → 2025-07-15 10:59 | Outpatient (BNV) | payer BC, SELFPAY | PROVIDERS: PCP Family Medicine; Visit Provider Radiology Diagnostic Radiology | DX: M19.071 Primary osteoarthritis, right ankle and foot (principal) | CPT/HCPCS: 73630 ==

== ENCOUNTER 2025-08-19 15:11 | Outpatient (AMB) | payer BC, SELFPAY ==
--- NOTE | 2025-08-19 15:15 | A.OFFPC_ITS ---
Vital Signs 08/19/25 15:22 Height 5 ft 3 in Weight 160 lb 2 oz BMI 28.4 BP 106/66 Blood Pressure Location Rt brachial Position Sitting Respiration 14 Pulse 57 Pulse Source Pulse Oximeter Temp 97.8 F Temp Source Temporal Artery Scan Pulse Oximetry (%) 95 Oxygen Delivery Method Room Air Intake Visit Reasons: review x-ray of right foot as well as lab work. Intake Note: Bharathi presents in the office for a review of his lab work and the x-ray of his right foot. Allergies oxycodone (OXYCODONE) Allergy (Intermediate, Verified 08/19/25 15:21) N/V, sometimes feels sick Medication List - Last Reconciled 08/19/25 by Christian Lock MD enalapril maleate 10 mg PO DAILY 90 days Tobacco use date assessed: 08/19/25 Dental Screening Dental Screen Date: 08/19/25 Did you have a dental visit in the last 12 months?: Yes Did you have a dental problem in the last 6 months where you did not have access to dental care?: No Was dental information given to patient?: Patient has dentist HPI review x-ray of right foot as well as lab work. HPI Details 65 y/o male presents to f/u R foot pain, labs. Foot xray 07/15/25. Showed degenerative changes of R foot. He states he has an appt. with podiatry scheduled. Labs drawn 07/15/25. Reviewed labs with pt. Fasting glucose 102. Triglycerides 106. TC 176. LDL 110. HDL 45. PSA 1.70. TSH 1.95. BP today 106/66, 57p. HPI Comments History of Present Illness Details Documentation assistance for Christian Lock MD, was provided by Paulo Brennan,? 8Th Grade Mathematics Teacher on 08/19/2025 at 4:11 PM EST. I, Dr. Lock, have read, observed, and verified documentation. ?? PFSH Medical History Right inguinal pain Arthritis Hypertension Hyperlipidemia LDL goal <130 Hyperlipidemia Surgical History History of colonoscopy History of inguinal hernia repair Family History Father Unknown family medical history Mother No problems noted. Social History (Updated 08/19/25 @ 15:22 by Sheron Ayoub CMA) Household Members: None Housing: House Alcohol intake: never Patient Tobacco Use Status: Former Tobacco user Tobacco use type: Cigarette Cigarette Packs Per Day: 0.5 Cigarettes Per Day: 10 Years Smoked: 28 e-Cigarette/Vaping Use: Never Used Second Hand Smoke Exposure: No service: No Current occupational status: employed Current occupation: [employer] Current occupational exposures/hazards: No Sexual orientation: Unable to collect Gender identity: Unable to collect Cognitive needs: No Hearing needs: Yes (patient reports hes always had problems with hearing and hearing aids.) Vision needs: No Questionnaire Thrive Questionnaire Date Thrive assessed: 09/05/23 ALCIRA-7 AMB Questionnaire ALCIRA-7 Date ALCIRA - 7 assessed: 09/05/23 Source: Developed by Drs. Higinio Morales, Maxine Suazo, Amado Steel and colleagues, with an educational kellie from [employer] Review of Systems Const Denies chills, Denies fatigue, Denies fever(s), Denies headache(s) and Denies weakness ENT Denies dizziness and Denies headache(s) Card Denies dyspnea Resp Denies cough, Denies dyspnea, Denies wheezing and Denies other (shortness of breath) Musc Denies numbness and Denies tingling Neuro Denies dizziness, Denies headache(s), Denies numbness, Denies tingling and Denies weakness Psych Denies anxiety and Denies depression Endo Denies fatigue Aller/Immun Denies wheezing Physical exam (Primary Care) Vital Signs: Last Vital Signs Temp 97.8 F 08/19/25 15:22 Pulse 57 08/19/25 15:22 Resp 14 08/19/25 15:22 BP 106/66 08/19/25 15:22 Pulse Ox 95 08/19/25 15:22 Oxygen Delivery Method Room Air 08/19/25 15:22 BMI result Body Mass Index 28.4 Tobacco/Smoking Status: Tobacco use Status Tobacco use date assessed 08/19/25 08/19/25 15:27 Patient Tobacco Use Status Former Tobacco user 08/19/25 15:22 Tobacco use type Cigarette 08/19/25 15:22 e-Cigarette/Vaping Use Never Used 08/19/25 15:22 Thrive Assessment: Date of Thrive Assessment Date Thrive assessed 09/05/23 08/19/25 15:17 Const General: well developed; No acute distress Nutritional Appearance: well nourished Orientation/consciousness: patient oriented x3 HENMT Head: Yes normocephalic and Yes atraumatic Eyes General: appearance normal, both eyes and all related structures Pupils: Equal, round and reactive pupils present EOM: EOMs intact bilaterally Resp Effort & Inspection: normal respiratory effort Neuro General: patient oriented x3 and gait normal Cranial nerves: Yes Equal, round and reactive pupils present Psych Affect: normal affect Coding Level of Care Code Est Pt Level 4 (03617) Diagnoses Right foot pain M79.671 Elevated fasting glucose R73.01 Hyperlipidemia E78.5 Hypertension I10 Assessment & Plan Assessment & Plan (1) Right foot pain: Code(s): M79.671 - Pain in right foot Category: Medical Plan: Ongoing right foot pain X-ray shows significant degenerative changes Sent a script for naproxen He has an appointment with Podiatry (2) Elevated fasting glucose: Code(s): R73.01 - Impaired fasting glucose Category: Medical Plan: Mildly elevated fasting blood sugar Encouraged a diet lower in sugars and starches Will recheck with next blood draw (3) Hyperlipidemia: Code(s): E78.5 - Hyperlipidemia, unspecified Category: Medical Plan: LDL cholesterol has improved though still slightly above goal Encouraged lifestyle changes Will recheck with next blood draw (4) Hypertension: Code(s): I10 - Essential (primary) hypertension Category: Medical Plan: Blood pressure is well controlled. Goal is less than 140/90 Continue current medication Orders: Orders Comprehensive [place]. Panel Fast Today I10 - Essential (primary) hypertension, Z00.00 - Encounter for general adult medical examination without abnormal findings TSH reflex Free T4 Today R79.89 - Other specified abnormal findings of blood chemistry, Z00.00 - Encounter for general adult medical examination without abnormal findings Lipid Panel Today E78.5 - Hyperlipidemia, unspecified, Z00.00 - Encounter for general adult medical examination without abnormal findings Hemoglobin A1c Today R73.01 - Impaired fasting glucose Medications: Changed From naproxen 500 mg PO BID PRN 28 tabs 2RF pain 14 days To naproxen 500 mg PO BID PRN 60 tabs 2RF pain 30 days
[2025-08-19 15:22] VITALS: BP 106/66; PULSE 57; RESP 14; TEMP 36.6; O2SAT 95; BMI 28.4
== END 2025-08-19 16:19 | disposition home or self-care (01) ==
LOC: HO.HMCFM 15:12
PROVIDERS: PCP Family Medicine; Visit Provider Family Medicine
DX: M79.671 Pain in right foot (principal); R73.01 Impaired fasting glucose; E78.5 Hyperlipidemia, unspecified; I10 Essential (primary) hypertension

== ENCOUNTER 2025-08-28 15:07 | Outpatient (AMB) | payer BC, SELFPAY ==
--- NOTE | 2025-08-28 15:20 | MHC.OFFVIS ---
Vital Signs 08/28/25 15:21 Height 5 ft 3 in Weight 160 lb BMI 28.3 Intake Visit Reasons: pain in right foot Intake Note: Bharathi is a 65 yea old male who presents today as a new patient for an evaluation of his right foot pain. 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 Patient has not had any treatment however he uses a product similar to bengay that provides slight relief. Foot X ray IMPRESSION: Degenerative changes of the right foot as described. Allergies oxycodone (OXYCODONE) Allergy (Intermediate, Verified 08/28/25 15:21) N/V, sometimes feels sick Medication List - Last Reconciled 08/28/25 by Diane Mijares DPM enalapril maleate 10 mg PO DAILY 90 days lidocaine 5% 1 patch topical BID naproxen 500 mg PO BID PRN 30 days HPI Comments Details: The patient is a 65-year-old male with a PMH as seen below presenting with persistent right foot and ankle pain. The issue began approximately two years ago following an injury. The patient reports that the pain is not severe, rating it around a 5/10, and it primarily occurs when standing for extended periods. He notes that the pain does not radiate and is localized to the area of the medial aspect of the foot along the medial cuneiform. There is no associated numbness or tingling. Previous evaluations included foot x-rays, which did not reveal any fractures, but early-stage arthritis was noted. The patient has been using topical treatments similar to Bengay at night and in the morning, which provide some relief, and has also been prescribed Naproxen with provides some relief. He has tried [id number] medications like Advil, which he finds effective but prefers to use sparingly. He denies any other peda concerns. [facility] Medical History (Updated 08/30/25 @ 19:34 by Diane Mijares DPM) Posterior tibial tendinitis, right leg Arthritis of right foot Right foot sprain Right inguinal pain Arthritis Hypertension Hyperlipidemia LDL goal <130 Hyperlipidemia Surgical History History of colonoscopy History of inguinal hernia repair Family History Father Unknown family medical history Mother No problems noted. Social History (Updated 08/19/25 @ 15:22 by Sheron Ayoub CMA) Household Members: None Housing: House Alcohol intake: never Patient Tobacco Use Status: Former Tobacco user Tobacco use type: Cigarette Cigarette Packs Per Day: 0.5 Cigarettes Per Day: 10 Years Smoked: 28 e-Cigarette/Vaping Use: Never Used Second Hand Smoke Exposure: No service: No Current occupational status: employed Current occupation: [employer] Current occupational exposures/hazards: No Sexual orientation: Unable to collect Gender identity: Unable to collect Cognitive needs: No Hearing needs: Yes (patient reports hes always had problems with hearing and hearing aids.) Vision needs: No Review of Systems Const Details: - Musculoskeletal: Reports localized right foot pain. Denies radiation of pain, numbness, or tingling. All systems reviewed & are unremarkable except as noted in HPI and below Physical Exam Vital Signs: BMI result Body Mass Index 28.3 Extrem Other: RLE Focused Physical Exam: Derm: Edema noted to the medial aspect of the foot along the medial cuneiform and medial aspect of the navicular and talus. No open lesions, abrasions, or wounds noted. No ecchymosis or discoloration noted. No clinical signs of infection noted. Vasc: DP/PT pulses palpable. CFT < 3 secs. Temp gradient warm to warm. Pedal hair present. No varicosities noted. Neuro: Protective sensations grossly intact. MSK: Pain on palpation to the medial aspect of the right foot in the area of the medial cuneiform, navicular, and talus. No crepitus noted. ROM of the forefoot, hindfoot, and ankle WNL. No fluctuance noted. Antalgic gait unassisted noted. No pain on palpation along the ankle. Ankle/foot/toe images:  1. Results Reviewed Results Reviewed: Ordered right ankle MRI to be obtained prior to next visit. Podiatry Read of Right foot xray (07/15/25): Bipartite medial and lateral sesamoids. Osteophytic changes noted to the dorsal aspect of the midfoot. Joint space narrowing noted to the 1st MPJ and TNJ. Right foot xray (07/15/25): FINDINGS: Three views of the right foot are submitted. Osseous mineralization is normal. There is no fracture or dislocation. There is moderate osteoarthritis of the 1st MTP joint with joint space and osteophyte formation. There is mild degenerative change of the talonavicular joint. The soft tissues are unremarkable. IMPRESSION: Degenerative changes of the right foot as described. Assessment & Plan Assessment & Plan (1) Right ankle pain: Code(s): M25.571 - Pain in right ankle and joints of right foot Category: Medical Qualifiers: Chronicity: chronic Qualified Code(s): M25.571 - Pain in right ankle and joints of right foot; G89.29 - Other chronic pain (2) Right foot pain: Code(s): M79.671 - Pain in right foot Category: Medical (3) Right foot sprain: Code(s): S93.601A - Unspecified sprain of right foot, initial encounter Category: Medical Qualifiers: Encounter type: initial encounter Qualified Code(s): S93.601A - Unspecified sprain of right foot, initial encounter (4) Arthritis of right foot: Code(s): M19.071 - Primary osteoarthritis, right ankle and foot Category: Medical (5) Posterior tibial tendinitis, right leg: Code(s): M76.821 - Posterior tibial tendinitis, right leg Category: Medical Plan Patient was informed and verbally consented to the use of an ambient scribe for clinic note documentation during this visit. I discussed with the patient the possibility of a soft tissue injury or stress fracture that may not be visible on x-ray, hence the need for an MRI to provide more detailed imaging. We talked about the use of lidocaine patches and NSAIDs for pain and swelling management. I explained that the MRI results would guide further treatment decisions and scheduled a follow-up in three weeks. - Ordered an MRI to assess soft tissue and rule out any underlying tendon issues or stress fractures. - Prescribed lidocaine patches for pain management, to be applied twice daily. - Recommended the use of NSAIDs to manage swelling and pain. - Advised patient to wear supportive shoe gear and to avoid barefoot walking. RTC in 3 weeks. Orders: Orders MR ankle RT wo con 08/28/25 M19.071 - Primary osteoarthritis, right ankle and foot, M25.571 - Pain in right ankle and joints of right foot, M76.821 - Posterior tibial tendinitis, right leg, M79.671 - Pain in right foot, S93.601A - Unspecified sprain of right foot, initial encounter Medications: New lidocaine 5% leave on most painful area for up to 12 hrs 1 patch topical BID 30 ea 1RF Right foot pain M19.071 - Primary osteoarthritis, right ankle and foot, M25.571 - Pain in right ankle and joints of right foot, M76.821 - Posterior tibial tendinitis, right leg, M79.671 - Pain in right foot Coding Level of Care Code New Pt Level 4 (37065) Diagnoses Chronic pain of right ankle M25.571; G89.29 Chronicity: chronic Right foot pain M79.671 Sprain of right foot, initial encounter S93.601A Encounter type: initial encounter Arthritis of right foot M19.071 Posterior tibial tendinitis, right leg M76.821 Time Spent (min) 53
[2025-08-28 15:21] VITALS: BMI 28.3
== END 2025-08-28 15:38 | disposition home or self-care (01) ==
LOC: HO.HPODS 15:07
PROVIDERS: PCP Family Medicine; Visit Provider Student in an Organized Health Care Education/Training Program
DX: M25.571 Pain in right ankle and joints of right foot (principal); G89.29 Other chronic pain; M79.671 Pain in right foot; S93.601A Unspecified sprain of right foot, initial encounter; M19.071 Primary osteoarthritis, right ankle and foot; M76.821 Posterior tibial tendinitis, right leg
CPT/HCPCS: 99204